=== PATIENT | female | born 1990 | race Caucasian/White ===

== ENCOUNTER 2017-02-04 17:04 | Emergency (ER) | payer BC ==
[2017-02-04 17:37] VITALS: BP 123/76
--- NOTE | 2017-02-04 17:38 | UC ---
Respiratory Complaint HPI - HPI Summary HPI Summary: nasal congestion, tight chest, cough, sore front of chest starting about a week ago. Is mostly worried because she held a baby all weekend and found out this week that her boss is taking abx prophylaxis for pertussis because boss's live- in grandchild is swab positive for it. Rodolfo does not have symptoms. Pt would like pertussis testing today. Denies fever, wheezing, vomiting, or rash. - History of Current Complaint Chief Complaint: UCRespiratory Stated Complaint: COUGH CHEST TIGHTNESS Time Seen by Provider: 02/04/17 17:24 Hx Obtained From: Patient Hx Last Menstrual Period: 02/01/17 ?: No Onset/Duration: Gradual Onset, Lasting Days Timing: Constant Severity Initially: Mild Severity Currently: Moderate Character: Cough: Nonproductive Aggravating Factors: Allergens, Exertion, Deep Breaths, Recumbent Position Alleviating Factors: Upright Position Associated Signs And Symptoms: Positive: URI, Nasal Congestion. Negative: Fever , Chills, Wheezing, Hemoptysis - Risk Factors Pulmonary Embolism Risk Factors: Estrogen - has implanon, no other risk factors for DVT - Allergies/Home Medications Allergies/Adverse Reactions: Allergies Allergy/AdvReac Type Severity Reaction Status Date / Time Certolizumab Pegol Allergy Severe HIVES, Verified 02/04/17 17:13 [From Cimzia] ITCHING Sulfa Antibiotics Allergy Severe throat Verified 02/04/17 17:13 swells itching Tramadol [From Ultram] Allergy Severe itchy Verified 02/04/17 17:13 Doxycycline Allergy Vomiting Verified 02/04/17 17:13 Latex Allergy Swelling Verified 02/04/17 17:13 Omalizumab [From Xolair] Allergy Dizziness Verified 02/04/17 17:13 Hydrocodone AdvReac Severe Vomiting Verified 02/04/17 17:13 ORANGES Allergy Unknown Runny Nose Uncoded 02/16/16 15:01 ranch dressing Allergy Swelling Uncoded 02/16/16 15:01 Of Face,Lips,& Throat xulane Allergy Rash And Uncoded 02/16/16 15:01 Itching Home Medications: Home Medications Etonogestrel IMPLANT(NF) [Implanon (NF)-not available] 02/04/17 [History] Golimumab [Simponi] MONTHLY 02/04/17 [History] Modafinil TAB* [Provigil TAB*] 02/04/17 [History] Pregabalin CAP(*) [Lyrica CAP(*)] 75 mg PO DAILY 02/04/17 [History Confirmed 07/12] PMH/Surg Hx/FS Hx/Imm Hx Previously Healthy: No - psoriatic arthritis, fibromyalgia Other GI/ History: UC - Surgical History Surgical History: Yes Surgery Procedure, Year, and Place: 2011 LEFT KNEE [place] 2012 SINUS SURGERY Colonoscopy, ABD SURGERY 02/08 - Family History Known Family History: Positive: Cardiac Disease - MGF, Blood Disorder - MGF blood clots - Social History Alcohol Use: Occasionally Substance Use Type: None Smoking Status (MU): Never Smoked Tobacco - Immunization History Most Recent Tetanus Shot: up to date Review of Systems Constitutional: Negative Skin: Negative Eyes: Negative ENT: Sore Throat, Nasal Discharge Respiratory: Shortness Of Breath, Cough Cardiovascular: Chest Pain Gastrointestinal: Negative Genitourinary: Negative Motor: Negative Neurovascular: Negative Musculoskeletal: Negative Neurological: Negative Psychological: Negative All Other Systems Reviewed And Are Negative: Yes Physical Exam Triage Information Reviewed: Yes Appearance: Well-Appearing, No Pain Distress, Well-Nourished Vital Signs: Initial Vital Signs Temp 99.3 F 02/04/17 17:07 Pulse 92 02/04/17 17:07 Resp 16 02/04/17 17:07 BP 123/76 02/04/17 17:07 Pulse Ox 100 02/04/17 17:07 Vital Signs Reviewed: Yes Eye Exam: Normal Eyes: Positive: Conjunctiva Clear ENT: Positive: Hearing grossly normal, Pharynx normal, Nasal congestion, TMs normal. Negative: Tonsillar swelling, Tonsillar exudate Dental Exam: Normal Neck exam: Normal Neck: Positive: Supple, Nontender, No Lymphadenopathy Respiratory Exam: Other - freq non-productive cough Respiratory: Positive: Normal breath sounds, No respiratory distress, No accessory muscle use Cardiovascular Exam: Normal Cardiovascular: Positive: RRR, No Murmur Musculoskeletal Exam: Normal, Other - bilat calf circumference 37.5cm Neurological Exam: Normal Neurological: Positive: Alert Psychological Exam: Normal Skin Exam: Normal UC Diagnostic Evaluation - Laboratory O2 Sat by Pulse Oximetry: 100 Respiratory Course/Dx - Differential Dx/Diagnosis Provider Diagnoses: acute bronchitis Discharge - Discharge Plan Condition: Stable Disposition: HOME Prescriptions: Albuterol HFA INHALER* [Ventolin HFA Inhaler*] 1 - 2 puff INH Q4H PRN #1 mdi PRN Reason: wheeze, cough Benzonatate CAP* [Tessalon 100 MG CAP*] 100 mg PO TID PRN #30 cap PRN Reason: Cough Patient Education Materials: Acute Bronchitis (ED) Referrals: Samuel Walker A P SUPERVISOR [Primary Care Provider] - Additional Instructions: Pertussis testing is pending Call or return if you develop increasing fever, shortness of breath, chest pain , bloody sputum, or otherwise worsen. If you have not improved at all after several days, contact your primary care physician or return here.
== END 2017-02-04 17:51 | disposition home or self-care (01) ==
LOC: UCEAST 17:04
DX: J20.9 Acute bronchitis, unspecified (principal); R09.81 Nasal congestion; Z88.2 Allergy status to sulfonamides; Z88.5 Allergy status to narcotic agent; Z88.3 Allergy status to other anti-infective agents; Z91.040 Latex allergy status; L40.50 Arthropathic psoriasis, unspecified; M79.7 Fibromyalgia
CPT/HCPCS: 87798; 99212; G0463

== ENCOUNTER 2019-07-27 22:46 | Inpatient (IN) | payer BC ==
[2019-07-28] MEDS ORDERED: Buffered Lidocaine 1% SYRIN* 1 ML/SYRINGE INTRADERM ONE (00:41)
[2019-07-28] MEDS ORDERED: Lactated Ringers 1000 ML Bag* 1,000 ML IV ONE ×2 (00:41→09:59)
--- NOTE | 2019-07-28 00:48 | HP ---
General Information - Reason for Visit gush of fluid at 1930 - General Information Maternal Age: 29 Grav: 1 Para: 0 SAB: 0 IEA: 0 Estimated Due Date: 08/05/19 Determined By: LMP Maternal Blood Type and Rh: A Positive - Results this Serology/RPR Result: Non-Reactive Rubella Result: Immune HBsAg Result: Negative HIV Result: Negative GBS Culture Result: Negative Past Medical History Pertinent Past Medical History: See Records Past Medical History Comment: autoimmune disease and ulcerative colitis Pertinent Past Surgical History: See Records Pertinent Family History: See Records - Antepartal Records Antepartal Records: Reviewed, Uncomplicated Review of Systems Constitutional: Comfortable CV Complaint: No Respiratory: Shortness of Breath: No Gastrointestinal: Nausea Genitourinary: Leaking Fluid, No Bleeding Musculoskeletal: Contractions Neurological: No Headache Movement: Normal Exam Allergies/Adverse Reactions: Allergies MS Certolizumab Pegol [From Cimzia] Allergy (Severe, Verified 11/30/18 12:45) HIVES, ITCHING MS Sulfa Antibiotics [Sulfa Antibiotics] Allergy (Severe, Verified 11/30/18 12: 45) throat swells itching MS Tramadol [From Ultram] Allergy (Severe, Verified 11/30/18 12:45) itchy MS Doxycycline [Doxycycline] Allergy (Verified 11/30/18 12:45) Vomiting MS Latex [Latex] Allergy (Verified 11/30/18 12:45) Swelling MS Omalizumab [From Xolair] Allergy (Verified 11/30/18 12:45) Dizziness sulfamethoxazole [From Bactrim] Allergy (Verified 07/27/19 23:29) Anaphylatic Shock trimethoprim [From Bactrim] Allergy (Verified 07/27/19 23:29) Anaphylatic Shock MS Hydrocodone [Hydrocodone] Adverse Reaction (Severe, Verified 11/30/18 12:45) Vomiting ORANGES Allergy (Unknown, Uncoded 11/30/18 12:45) Runny Nose PT STATES ORANGES MAKE HER ITCH AND MAKE HER STOMACH 10 X WORSE FEELING ranch dressing Allergy (Uncoded 11/30/18 12:45) Swelling Of Face,Lips,& Throat xulane Allergy (Uncoded 11/30/18 12:45) Rash And Itching Lab Values - Entire Visit: Laboratory Tests 07/27/19 23:18 Vag Amniotic Fld Detect Positive - Measurements Height: 5 ft 7 in Weight: 165 lb Weight in lbs: 165.027152 Body Mass Index (BMI): 25.8 Pre- Weight: 139 lb Weight Gained This : 26 lbs and 0 ozs - Exam Breast: Breast Exam Deferred Extremities: No Edema Heart: Normal Rhythm/Heart Sounds HEENT: No Significant Findings Lungs: Clear Bilaterally Rectal: Rectal Exam Deferred Reflexes: DTR 2+ Thyroid: No Thyromegaly - Abdominal Exam Abdomen Exam: Non-Tender, Fundal Height Consistent with Dates - Ultrasound/Biophysical Profile Ultrasound Status: Not Done Targeted Exam Findings Estimated Weight: 6lbs 10oz Cervical Exam: 3cm Effacement: 80% Station: -1 Presenting Part: Vertex Membrane Status: SROM Amniotic Fluid Evaluation: Positive ROM Plus EFM Findings - External Monitor Findings Baseline Heart Rate: 130 External Monitor Findings: Accelerations Present, No Pattern of Variable or Late Decelerations, Variability Moderate, Baseline Stable Contractions: Regular, Mild, 45-90 Seconds Assessment/Plan - Assessment will augment if labor does not increase / was planned for induction at 39 weeks on thursday - Plan Plan: Admit - Anticipate Vaginal Delivery
[2019-07-28 01:23] LABS: Urine Benzodiazepine Screen None Detected (None Detect); Urine Opiates Screen None Detected (None Detect)
[2019-07-28] MEDS ORDERED: HYDROmorphone INJ1* 1 MG/ML SYRINGE IV ONE (02:20)
[2019-07-28] MEDS ORDERED: HYDROmorphone INJ* 0.5 MG/0.5 ML SYRINGE IV ONE (02:30)
[2019-07-28 02:37] LABS: ABS Basophils 0.1 10^3/ul (0-0.2); ABS Lymphocytes 1.2 10^3/ul (1.0-4.8); ABS Monocytes 0.6 10^3/ul (0-0.8); ABS Neutrophils 13.2 10^3/ul (1.5-7.7); Eosinophil % 0.1 %; Hematocrit 29 % (35-47); Hemoglobin 9.4 g/dL (12.0-16.0); Lymphocyte % 8.2 %; Mean Corpuscular HGB Conc 32 g/dL (31-36); Mean Corpuscular Hemoglobin 25 pg (27-31); Mean Corpuscular Volume 78 fL (80-97); Platelet Count 194 10^3/uL (150-450); Red Blood Count 3.75 10^6 /uL (3.70-4.87); Red Cell Distribution Width 16 % (10-15); White Blood Count 15.2 10^3/uL (3.5-10.8)
[2019-07-28] MEDS ORDERED: Ondansetron INJ* 2 MG/ML VIAL IV PRN (07:14)
[2019-07-28] MEDS ORDERED: Hydrocortisone INJ* 100 MG/2 ML VIAL (in pyxis) IV PRN (07:46)
[2019-07-28] MEDS: Metoprolol Tartrate TAB* 25 MG PO SCH (08:20)
[2019-07-28] MEDS: Hydrocortisone INJ* 100 MG/2 ML VIAL (in pyxis) IM SCH ×3 (08:22→22:05)
--- NOTE | 2019-07-28 08:32 | PN ---
Progress Note - Progress Note Date of Service: 07/28/19 Note: Pt is a 29 y/o G1 at 38w6d with ROM, clear at 1931 on 07/27/2019 in labor, cervix last examined at 0630 by prior doctor radiation safety officer, 4-5cm/80%/-1. Received dose of dilaudid overnight for pain control. complicated by autoimmune disorders including Hx of UC, psoriatic arthritis and psoriasis for which she is treated with Prednisone 10mg daily. FHT baseline 135bpm/moderate/+accels/no decels Ctxn: q 3-4 minutes Pt appears to be flora regularly, managing pain well, has progressed well overnight. Will continue to expectantly manage labor at this time. Will continued Prednisone 10mg daily per current regimen, will also start Stress Dose Steroid Regimen with IM Hydrocortisone 50mg Q 6 hours, and will continue this regimen until final dose at 6 hours post ; reviewed plan with Anesthesia who is in agreement. Continue Metoprolol for PVC's. RH+/Rubella Immune GBS Negative Re-assess as clinically indicated DO NASEEM White
[2019-07-28] MEDS ORDERED: Famotidine TAB* 20 MG PO PRN (09:59)
[2019-07-28] MEDS ORDERED: Phenylephrine 40 MCG/ML SYRINGE IV PUSH PRN ×2 (09:59)
[2019-07-28] MEDS ORDERED: Sodium Citrate/Citric Acid* 15 ML UDC PO PRN (09:59)
[2019-07-28] MEDS ORDERED: OBEPIDURAL* 250 ML EPIDURAL ONE (09:59)
[2019-07-28] MEDS ORDERED: OBEPIDURAL* 250 ML EPIDURAL SCH (10:00)
[2019-07-28] MEDS ORDERED: Lactated Ringers 1000 ML Bag* 1,000 ML IV SCH (10:00)
[2019-07-28] MEDS: Lactated Ringers 1000 ML Bag* 1,000 ML IV SCH ×2 (11:37→18:41)
--- NOTE | 2019-07-28 13:02 | PN ---
Progress Note - Progress Note Date of Service: 07/28/19 Note: Pt continuing to progress spontaneously without augmentation. Last Cervix check 6-7cm/90%/0 station. Baseline FHT is 130/moderate/+accels/prolonged decel x 2 with recovery with re- positioning, no pattern of late or variable decels [place]: Q 2 -4 minutes Comfortable s/p epidural. Continue to monitor closely Anticipate vaginal delivery Raudel Delgado, OBKARLENEN
[2019-07-28] MEDS ORDERED: Oxytocin in LR* 20 UNITS/1,000 ML BAG IVPB SCH (16:00)
--- NOTE | 2019-07-28 18:39 | PN ---
Progress Note - Progress Note Date of Service: 07/28/19 Note: Re-examined after variable decel. Cervix is now 9cm/100%/+1 station. Pitocin turned off during decel, pt continues to contract q 2-4 minutes. Fetus now reactive and reassuring with moderate variability and a baseline of 120bpm, no further decelerations. Pt is comfortable with epidural. Continue Stress dose steroids. Continue Maternal repositioning, continuous EFM, expectant management. Anticipate vaginal delivery. Raudel Delgado, DO GUSMAN
[2019-07-28] MEDS ORDERED: hydrOXYzine HCL TAB* 25 MG PO PRN (18:40)
--- NOTE | 2019-07-28 21:52 | PN ---
Progress Note - Progress Note Date of Service: 07/28/19 Note: Pt re-examined. Cervix is an anterior lip. Attempted to reduce lip with pushing, but unsuccessful. FH is baseline of 145bpm, moderate variability, + accels, no pattern of variable or late decelerations Contractions have spaced out to q 5-6 minutes AVSS, afebrile, BP 121/71 Will re-start Pitocin Anticipate Vaginal delivery DO NASEEM White
[2019-07-28] MEDS ORDERED: Gentamicin ADULT per pharmacy 1 NOTE MISC FOLLOW UP PRN (22:26)
--- NOTE | 2019-07-28 22:33 | PN ---
Progress Note - Progress Note Date of Service: 07/28/19 Note: Pt with maternal fever now. 100.4 then 100.7 on 30 minute re-check. FHT baseline has climbed and is now 150bpm. WBC count was >15k on admission, though pt has been on prednisone, will repeat CBC w/ diff now. Will treat for suspected Chorioamnionitis with Ampicillin and Gentamicin now. Will attempt pushing again if cervical lip has resolved. If fetus unable to tolerate pushing, will proceed with primary . Risks versus benefits and alternatives reviewed with patient. FHT currently with good beat to beat variability, recent accelerations with recurrent early decelerations. Raudel Delgado, DO GUSMAN
[2019-07-28] MEDS: Ampicillin ADVAN(*) 2 GM in NS 0.9% 100 ML* 100 ML IVPB SCH (22:51)
[2019-07-28 23:02] LABS: ABS Basophils 0.1 10^3/ul (0-0.2); ABS Lymphocytes 0.9 10^3/ul (1.0-4.8); ABS Monocytes 0.8 10^3/ul (0-0.8); ABS Neutrophils 16.6 10^3/ul (1.5-7.7); Hematocrit 27 % (35-47); Hemoglobin 8.6 g/dL (12.0-16.0); Mean Corpuscular HGB Conc 32 g/dL (31-36); Mean Corpuscular Hemoglobin 25 pg (27-31); Mean Corpuscular Volume 78 fL (80-97); Mean Platelet Volume 9.9 fL (7.4-10.4); Platelet Count 178 10^3/uL (150-450); Red Blood Count 3.52 10^6 /uL (3.70-4.87); Red Cell Distribution Width 16 % (10-15); White Blood Count 18.4 10^3/uL (3.5-10.8)
[2019-07-28] MEDS: NS 0.9% IVPB SCH (23:30)
[2019-07-28] MEDS: GENTAMICIN ADULT IVPB SCH (23:30)
--- NOTE | 2019-07-29 00:37 | PN ---
Progress Note - Progress Note Date of Service: 07/29/19 Note: After initiating IV antibiotics for Chorioamnionitis pt found to be fully dilated and pushing was initiated. The FHT was noted to have moderate variability and accelerations at time that pushing was started. Shortly after starting pushing the heart tracing exhibited a prolonged deceleration with otoniel into the 50's lasting approximately 9 minutes with only intermittent recovery. head was making good descent and emergency vacuum extraction was attempted. Explained to patient emergency nature of procedure and that if vacuum assistance failed we would need to proceed to . The head was palpated to be in SOHAM position at +2 station and the pelvis was felt to be appropriate for vaginal delivery. Bladder was emptied with patel, which was removed just prior to vacuum application. The [employer] vacuum device was applied over the sagittal suture and about 3cm in front of the posterior fontanelle toward the face. Vacuum pressure was created with the hand pump and established at ~500mm Hg. Edge of the vacuum was palpated and appeared free of maternal tissue entrapment. With the left hand applying counter pressure on the vacuum to prevent pop-off, right hand applied horizontal traction along the pelvic axis in coordination with contractions and maternal pushing effort and good effect was noted with continued descent of the head prior to a pop-off. This was repeated x ~ 4, with 2 additional pop-offs and continued descent of the head. During the vacuum application process it was difficult to maintain a seal secondary to maternal blood and there were multiple failures of the seal prior to application of traction with maternal effort. The Heart tracing improved with descent of the head, but it no longer felt safe to continue with repeated vacuum applications given 3 pop offs. section was recommended at this point and the patient was consented for a section. Anesthesia was notified. Neonatology had previously been notified and was present already. On arrival of Anesthesia and co-surgeon Dr. Grubbs shortly thereafter, heart tracing was stable, exhibiting moderate variability and patient was examined one final time by Dr. Grubbs with maternal pushing effort. At this time Dr. Grubbs felt that the infant could be delivered vaginally with the aid of an episiotomy, which was ultimately performed and the delivered shortly thereafter in SOHAM orientation. See Dr. Grubbs's delivery note regarding his portion of the delivery and repair. will be observed in the NICU until cleared by neonatology. Raudel Danny, DO GUSMAN
[2019-07-29] MEDS ORDERED: Witch Hazel PAD* JAR TOPICAL PRN (01:04)
[2019-07-29] MEDS ORDERED: Acetaminophen TAB* 325 MG PO PRN (01:04)
[2019-07-29] MEDS ORDERED: Glycerin ADULT SUPP PR PRN (01:04)
[2019-07-29] MEDS ORDERED: Dibucaine 1% 28.35 GM TUBE PR PRN (01:04)
[2019-07-29] MEDS: Ibuprofen TAB* 600 MG PO PRN ×3 (01:18→20:07)
[2019-07-29] MEDS ORDERED: Lactated Ringers 1000 ML Bag* 1,000 ML IV SCH (02:00)
[2019-07-29] MEDS: Ampicillin ADVAN(*) 2 GM in NS 0.9% 100 ML* 100 ML IVPB SCH ×2 (06:29→14:00)
[2019-07-29] MEDS ORDERED: Simethicone TAB* 80 MG TAB.CHEW PO SCH (08:30)
[2019-07-29] MEDS: Docusate CAP* 100 MG PO SCH ×3 (08:40→20:08)
[2019-07-29] MEDS: Metoprolol Tartrate TAB* 25 MG PO SCH (08:40)
[2019-07-29] MEDS ORDERED: Hydrocortisone INJ* 100 MG VIAL IM ONE (11:15)
[2019-07-29 13:38] LABS: ABS Lymphocytes 0.9 10^3/ul (1.0-4.8); ABS Monocytes 0.5 10^3/ul (0-0.8); ABS Neutrophils 14.3 10^3/ul (1.5-7.7); Hematocrit 21 % (35-47); Hemoglobin 6.6 g/dL (12.0-16.0); Lymphocyte % 5.8 %; Mean Corpuscular HGB Conc 32 g/dL (31-36); Mean Corpuscular Hemoglobin 25 pg (27-31); Mean Corpuscular Volume 78 fL (80-97); Platelet Count 171 10^3/uL (150-450); Red Blood Count 2.64 10^6 /uL (3.70-4.87); Red Cell Distribution Width 16 % (10-15); White Blood Count 15.7 10^3/uL (3.5-10.8)
[2019-07-30] MEDS: Ampicillin ADVAN(*) 2 GM in NS 0.9% 100 ML* 100 ML IVPB SCH ×4 (04:52→08:14)
[2019-07-30] MEDS: NS 0.9% IVPB SCH (05:31)
[2019-07-30] MEDS: GENTAMICIN ADULT IVPB SCH (05:31)
[2019-07-30] MEDS: Ferrous Gluconate TAB* 324 MG TAB PO SCH ×2 (08:38→22:04)
[2019-07-30] MEDS: Docusate CAP* 100 MG PO SCH ×3 (08:38→22:05)
[2019-07-30] MEDS: Ibuprofen TAB* 600 MG PO PRN ×3 (08:38→22:04)
[2019-07-30] MEDS: Metoprolol Tartrate TAB* 25 MG PO SCH (08:39)
[2019-07-30 10:35] LABS: ABS Basophils 0.1 10^3/ul (0-0.2); ABS Lymphocytes 1.9 10^3/ul (1.0-4.8); ABS Monocytes 0.7 10^3/ul (0-0.8); ABS Neutrophils 10.1 10^3/ul (1.5-7.7); Eosinophil % 0.3 %; Hematocrit 25 % (35-47); Hemoglobin 8.3 g/dL (12.0-16.0); Mean Corpuscular HGB Conc 33 g/dL (31-36); Mean Corpuscular Hemoglobin 26 pg (27-31); Mean Corpuscular Volume 80 fL (80-97); Mean Platelet Volume 9.4 fL (7.4-10.4); Platelet Count 135 10^3/uL (150-450); Red Blood Count 3.16 10^6 /uL (3.70-4.87); Red Cell Distribution Width 16 % (10-15); White Blood Count 12.8 10^3/uL (3.5-10.8)
--- NOTE | 2019-07-30 12:10 | PN ---
Progress Note - Progress Note Date of Service: 07/30/19 Note: PPD#2 s/p VAVD with episiotomy at term S: Pt doing OK this AM. Continues to report some dizziness, but overall feels much better s/p transfusion. Hct clotilde from 21-->25 after transfusion. Voiding spontaneously. Tolerating regular diet. Pain is appropriately controlled at this time, no fundal tenderness. with baby in room. Denies fever, chills, n/v, cp, sob. O: AVSS, afebrile, hemodynamcially stable Gen: nad, aaox3 CV: RRR Pulm: ctable Abd: soft, nd, no fundal ttp, fundas firm and below the U Ext: warm, nttp A/P: 29 y/o PPD #2 s/p VAVD with episiotomy in the context of SROM at term: - AVSS, afebrile hemodynamically stable - Baby in room and - Anemia: AVSS at this time. Hct clotilde from 21 to 25 with transfusion. Pt reports some continued mild dizziness, otherwise asymptomatic. Will continue to monitor BP's and pulse and for symptoms. Re-check H/H on 07/31/2019 in the AM. - Chorioamnionitis diagnosed in labor - s/p therapy with Ampicillin and Gentamicin. Afebrile x 24 hours. OK to DC Abx therapy at this time. No fundal tenderness to palpation. - Autoimmune disorders - continue Prednisone 10mg daily, pt received stress dose steroids while in labor and up until 6 hours PP. - Continue Metoprolol for hx of PVC's - RH+/Rubella Immune - Continue routine PP care, anticipate discharge home tomorrow pending continued stability and improvement s/p transfusion DO NASEEM White
[2019-07-31] MEDS: Ibuprofen TAB* 600 MG PO PRN ×2 (04:01→13:01)
[2019-07-31 09:00] VITALS: BP 126/74
[2019-07-31] MEDS: Ferrous Gluconate TAB* 324 MG TAB PO SCH (09:01)
[2019-07-31] MEDS: Metoprolol Tartrate TAB* 25 MG PO SCH (09:01)
[2019-07-31] MEDS: Docusate CAP* 100 MG PO SCH ×2 (09:01→13:01)
--- NOTE | 2019-07-31 15:28 | PTEDU ---
Patient Name: BRIDGETT SANTORO ROSALiorBILLY BRIDGETT selected video: Never Ever Shake a Baby to view on 07/31/2019 at 3:28:01 PM from [id number]
--- NOTE | 2019-07-31 15:38 | PTEDU ---
Patient Name: BRIDGETT SANTORO LEELiorBILLYBRIDGETT selected video: BBOB: Nurturing Your Gorgeous &Growing Baby by to vi ew on 07/31/2019 at 3:37:20 PM from [id number]
== END 2019-07-31 18:20 | disposition home or self-care (01) | DRG 560 ==
LOC: MCHOBOUT 22:46 → MCHOB 23:58
PROVIDERS: ADMIT Obstetrics & Gynecology; ATTEND Obstetrics & Gynecology
PROC: 10D07Z6 Extraction of Products of Conception, Vacuum, Via Natural or Artificial Opening (ICD-10-PCS; principal; 2019-07-29)
PROC: 0W8NXZZ Division of Female Perineum, External Approach (ICD-10-PCS; 2019-07-29)
PROC: 30233N1 Transfusion of Nonautologous Red Blood Cells into Peripheral Vein, Percutaneous Approach (ICD-10-PCS; 2019-07-29)
DX: O75.2 Pyrexia during labor, not elsewhere classified (principal); O41.1230 Chorioamnionitis, third trimester, not applicable or unspecified; Z37.0 Single live birth; O42.02 Full-term premature rupture of membranes, onset of labor within 24 hours of rupture; O99.89 Other specified diseases and conditions complicating pregnancy, childbirth and the puerperium; O76 Abnormality in fetal heart rate and rhythm complicating labor and delivery; O90.81 Anemia of the puerperium; D64.9 Anemia, unspecified; L40.50 Arthropathic psoriasis, unspecified; L40.9 Psoriasis, unspecified; Z3A.38 38 weeks gestation of pregnancy
CPT/HCPCS: 36415; 80307; 84112; 85025; 86850; 86900; 86901; 86922; 88307; A9270-GY; J1170; J1580; J1720; J2405; J7512; P9040